=== PATIENT | female | born 1975 | race Caucasian/White ===

== ENCOUNTER 2016-11-18 21:39 | Emergency (ER) | payer SELFPAY ==
[2016-11-18] MEDS ORDERED: ONDANSETRON 4 MG TAB.RAPDIS PO ONE (23:05)
[2016-11-19] MEDS ORDERED: HYDROCODONE/ACETAMINOPHEN 5-325 MG 6 TAB/DSPK PO PRN (02:30)
[2016-11-19] MEDS ORDERED: PREDNISONE 20 MG TABLET PO ONE (02:30)
[2016-11-19] MEDS ORDERED: DIAZEPAM INJ 10 MG/2 ML DISP.SYRIN IM ONE (02:30)
--- NOTE | 2016-11-19 02:30 | ER Document Report ---
ED Fall - General Chief Complaint: Fall Stated Complaint: FALL,BACK/NECK PAIN Time seen by provider: 02:30 Mode of Arrival: Ambulatory Information source: Patient TRAVEL OUTSIDE OF THE [place] IN LAST 30 DAYS: No - HPI Patient complains to provider of: fall, neck pain, back pain Occurred: Other - 2 days ago Where: Home Context: Fell from height Associated symptoms: None Location of injury/pain: Back, Neck Quality of pain: Achy Severity: Moderate Pain Level: 3 Notes: Patient is a 41-year-old female presenting to the emergency room status post fall 2 days ago, causing injury to her neck and back, she reports that she was standing on an end table approximately 2 feet in the air, when one of the legs gave out, causing her to fall backwards hitting her neck and back during the fall, she denies any loss of consciousness, no headache, no nausea or vomiting, she reports a small superficial laceration to the back of her neck, she states she's been taking ibuprofen over the past few days but her pain has not gotten any better, last tetanus shot is unknown, she was seen by her primary care provider who prescribed her tramadol which she states is not helping, patient reports a history of cervical herniated disks, and is having some tingling sensation down the right arm - Related data Allergies/Adverse Reactions: No Known Allergies Allergy (Verified 11/18/16 23:01) Past Medical History - General Information source: Patient - Social History Smoking Status: Current Every Day Smoker Chew tobacco use (# tins/day): No Frequency of alcohol use: Social Drug Abuse: None Family History: Reviewed & Not Pertinent Renal/ Medical History: Denies: Hx Peritoneal Dialysis Review of Systems - Review of Systems Constitutional: No symptoms reported EENT: No symptoms reported Cardiovascular: No symptoms reported Respiratory: No symptoms reported Gastrointestinal: No symptoms reported Genitourinary: No symptoms reported Female Genitourinary: No symptoms reported Musculoskeletal: See HPI Skin: See HPI Hematologic/Lymphatic: No symptoms reported Neurological/Psychological: Tingling -: Yes All other systems reviewed and negative Physical Exam - Vital signs Vitals: Temp Pulse Resp BP Pulse Ox 98.6 F 74 16 143/92 H 98 11/18/16 22:32 11/18/16 22:32 11/18/16 22:32 11/18/16 22:32 11/18/16 22:32 Interpretation: Normal - General General appearance: Appears well, Alert - HEENT Head: Normocephalic, Atraumatic Eyes: Normal Conjunctiva: Normal Extraocular movements intact: Yes Eyelashes: Normal Pupils: PERRL Neck: Other - Right sided paraspinal muscle tenderness, 1 cm superficial laceration over the left lower cervical paraspinal musculature, pain continues down into the right trapezius muscle - Respiratory Respiratory status: No respiratory distress Chest status: Nontender Breath sounds: Normal Chest palpation: Normal - Cardiovascular Rhythm: Regular Heart sounds: Normal auscultation Murmur: No - Abdominal Inspection: Normal Distension: No distension Bowel sounds: Normal Tenderness: Nontender Organomegaly: No organomegaly - Back Back: Normal, Nontender - Extremities General upper extremity: Normal color, Normal ROM, Normal temperature General lower extremity: Normal inspection, Nontender, Normal color, Normal ROM , Normal temperature, Normal weight bearing. No: Oxana's sign Shoulder: Tender - Tender to palpate and right trapezius muscle, pain with range of motion testing, distal sensation and motor is intact, 2+ radial pulses and brisk capillary refill - Neurological Neuro grossly intact: Yes Cognition: Normal Orientation: AAOx4 Leonard Coma Scale Eye Opening: Spontaneous Leonard Coma Scale Verbal: Oriented [place] Coma Scale Motor: Obeys Commands Leonard Coma Scale Total: 15 Speech: Normal Motor strength normal: LUE, RUE, LLE, RLE Sensory: Normal - Psychological Associated symptoms: Normal affect, Normal mood - Skin Skin Temperature: Warm Skin Moisture: Dry Skin Color: Normal Course - Re-evaluation Re-evalutation: 11/19/16 05:23 Imaging findings unremarkable, these findings were discussed with patient at bedside, she was provided with muscle relaxers and pain medication, advised to use one or the other for control of her symptoms, follow up with her primary care provider or return if symptoms worsen, patient acknowledges understanding and agreement with this plan - Vital Signs Vital signs: Temp Pulse Resp BP Pulse Ox 98.0 F 72 16 129/82 H 98 11/19/16 04:05 11/19/16 04:05 11/19/16 04:05 11/19/16 04:05 11/19/16 04:05 - Diagnostic Test Radiology reviewed: Image reviewed, Reports reviewed Discharge - Discharge Clinical Impression: Cervical strain, acute Qualifiers: Encounter type: initial encounter Qualified Code(s): S16.1XXA - Strain of muscle, fascia and tendon at neck level, initial encounter Shoulder strain Qualifiers: Encounter type: initial encounter Laterality: right Qualified Code(s): S46.911A - Strain of unspecified muscle, fascia and tendon at shoulder and upper arm level, right arm, initial encounter Condition: Stable Disposition: HOME, SELF-CARE Instructions: Muscle Strain ([facility]), Neck Injury (Cervical Strain) ([facility]), Muscle Relaxers ([facility]), Oral Narcotic Medication ([facility]) Additional Instructions: Follow up with your primary care provider in one to 2 days. Return to the emergency room immediately if symptoms worsen or any additional concerns. Prescriptions: Cyclobenzaprine HCl [Flexeril 10 Mg Tablet] 10 mg PO TID #10 tablet Hydrocodone/Acetaminophen [Hydrocodon-Acetaminophen 5-325] 1 each PO Q6 #20 tablet Forms: Smoking Cessation Education, Elevated Blood Pressure
[2016-11-19] MEDS ORDERED: DIAZEPAM INJ 10 MG/2 ML DISP.SYRIN ONE (02:52)
[2016-11-19 04:07] VITALS: BP 129/82
== END 2016-11-19 04:05 | disposition home or self-care (01) ==
LOC: ER 21:39
DX: S46.911A Strain of unspecified muscle, fascia and tendon at shoulder and upper arm level, right arm, initial encounter (principal); S16.1XXA Strain of muscle, fascia and tendon at neck level, initial encounter; S11.81XA Laceration without foreign body of other specified part of neck, initial encounter; W08.XXXA Fall from other furniture, initial encounter; Y93.E9 Activity, other interior property and clothing maintenance; Y92.009 Unspecified place in unspecified non-institutional (private) residence as the place of occurrence of the external cause; R20.2 Paresthesia of skin; M54.2 Cervicalgia; M54.9 Dorsalgia, unspecified; F17.200 Nicotine dependence, unspecified, uncomplicated
CPT/HCPCS: 99284; 96372; 72050; 73030; J3360; S0119; J7512